=== PATIENT | female | born 1955 | race Hispanic/Latino ===

== ENCOUNTER 2016-05-17 15:57 | Emergency (ER) | payer MEDICARE, MEDICAID ==
[~2016-05-17] VITALS: Ht 154.9 cm; Wt 120.0 kg
[~2016-05-17 15:57] MED LIST: ACET-2561 PO; ALBU2.5V4 IH; ALBU8.5H2 INHALATION; BECL8.7A6 IH; CHOL500050 PO; DIAZ5TAB PO; ERYT1OIN7 BOTH_EYES; GABA-502 PO; LEVO100T97 PO; METF850T2 PO; NITR0.4T SL; OMEP40CA3 PO; ONDA8TAB10 PO; OXYC15TA79 PO; PREG150C PO; ROPI0.5T2 PO; shower chair
[2016-05-17 16:15] VITALS: BP 125/82; PULSE 66; RESP 16; O2SAT 98
--- NOTE | 2016-05-17 19:14 | ED.REPORT ---
HPI-Abd Pain F 40 and Over Date of Service May 17, 2016 ED Provider: Sue Ramirez MD Pt is a 60 y.o. female with an extensive medical hx including chemotherapy secondary to Stage III ovarian cancer, kidney stones, and DM who presents to the ED from c/o right flank pain radiating to her RLQ. Pt states she was seen at and with a UTI, however they were concerned that she may also have a kidney infection. Pt reports associated dysuria and fever (subjective). Pt had chemotherapy on Thursday. Nursing Notes Stated Complaint: RIGHT SIDE PAIN Chief Complaint: Back Pain or Injury Nursing Notes Reviewed: Yes Allergies: Coded Allergies: naproxen (Verified Allergy, Severe, RHABDOMYOLYSIS - RASH,SWELL, 05/29/15) TAPE (Verified Allergy, Intermediate, rash/burn with plastic adhesive tape , 05/29/15) Use paper tape Scheduled Albuterol HFA (Proair HFA) 8.5 Gm Hfa.aer.ad 2 PUFFS INHALATION Q4H Beclomethasone Dipropionate (Qvar) 8.7 Gm Aer.w.adap 8.7 GM IH BID Diazepam (Valium) 5 Mg Tablet 5 MG PO TID Erythromycin Ophth Oint (Erythromycin Ophth Oint) 3.5 Gm Oint...g. 1 APPLIC BOTH _EYES TID Gabapentin (Gabapentin) 300 Mg Capsule 300 MG PO TID Levothyroxine (Synthroid) 100 Mcg Tablet 100 MCG PO DAILY Metformin (Metformin) 850 Mg Tablet 850 MG PO AM Omeprazole (Prilosec) 40 Mg Capsule.dr 40 MG PO BID Ondansetron ODT (Ondansetron ODT) 8 Mg Tab.rapdis 4-8 MG PO QID Pregabalin (Lyrica) 150 Mg Capsule 150 MG PO BID Ropinirole (Ropinirole) 0.5 Mg Tablet 0.5-1 MG PO HS Scheduled PRN Acetaminophen (Extra Strength Non-Aspirin) 500 Mg Tablet 500 MG PO Q6H PRN PRN PRN Albuterol Neb Soln (Albuterol Neb Soln) 2.5 Mg/3 Ml Vial.neb 2.5 MG IH Q4 PRN PRN For Shortness of Breath Cholecalciferol (Vitamin D3) (Vitamin D3) 50,000 Unit Capsule 50,000 UNIT PO WKLY PRN PRN DEFICIENCY Nitroglycerin SL (Nitrostat) 0.4 Mg Tab.subl 0.4 MG SL Q5MIN PRN PRN CHEST PAIN oxyCODONE (oxyCODONE) 15 Mg Tablet 15 MG PO Q4H PRN PRN For Pain Miscellaneous Medications ([shower chair]) 1 General Time Seen by MD: 19:12 Chief Complaint Flank pain right Hx Obtained From: Patient Arrived By: Walk-in Sudden in Onset?: Yes Onset Occurred: 5 - 8 hours ago Symptom Duration: Since onset Location: : Flank right Quality: Painful Radiation: : RLQ Severity: Current: Moderate Past Medical History Past Medical History Pneumonia Ulcer Kidney Stones Herniated discs Dermatomyositis Stage III Ovarian cancer on chemotherapy GERD Diabetes mellitus DVT requiring IVC filter placement status post removal of IVC filter DJD OA Depression Asthma Reports: GI bleed, Urinary tract infection Past Surgical History Cholecystectomy Partial hysterectomy Bilateral salpingo-oophorectomy and omentectomy secondary to left ovarian tumor Left port placement Muscle biopsy IVC filter placement and removal section 3 Reports: , Cholecystectomy Smoking History Former Smoker Social History Alcohol Use: Denies alcohol use Drug Use: Denies drug use Other Social History: Good social support, Local resident Ambulatory Status Independent Review of Systems Constitutional: Reports: Fever (Subjective) GI: Reports: Abdominal pain Female: Reports: Dysuria, Flank pain Complete sys rev & neg: except as marked. Physical Exam Vital Signs Vital Signs (First) Date Time Temp Pulse Resp B/P Pulse Ox O2 Delivery O2 Flow Rate FiO2 05/17/16 16:15 36.5 66 16 125/82 98 Room Air Initial VS: Reviewed Head / Eyes: Atraumatic, Normocephalic Extremities: Vascular intact, Neuro intact Neurologic: Alert, Oriented, Nonfocal Psychiatric: Mood/affect normal, Behavior normal, Normal thought content General/Constitutional: Awake, Alert Appearance / Presentation: Positive: Obese, morbidly Respiratory / Chest: Atraumatic, Breath sounds NL, Breath sounds = bilat, No respiratory distress Cardiovascular: Regular rhythm, Heart sounds NL Heart Rate / Rhythm: Positive: Tachycardia Tenderness/Guarding/Rebound: Positive: Tender RLQ..., Tender flank R Back: Atraumatic, Inspection NL Right CVA tenderness Interpretation & Diagnostics Lab Results Interpretation Result Diagram: 05/17/16193905/17/161939 Test 05/17/16 19:40 05/17/16 20:00 White Blood Count 5.6th/mm3 (3.8-10.1) Red Blood Count 3.94mil/mm3 (3.90-5.20) Hemoglobin 11.3g/dL (12.0-15.6) Hematocrit 34.2% (35.0-46.0) Mean Corpuscular Volume 86.8fL (81-100) Mean Corpuscular Hemoglobin 28.7pg (27.0-35.0) Mean Corpuscular Hemoglobin Concent 33.0% (32.0-37.0) Red Cell Distribution Width 15.5% (12.3-15.4) Platelet Count 207bil/L (150-400) Neutrophils (%) (Auto) 57.4% (40-74) Lymphocytes (%) (Auto) 30.6% (14-46) Monocytes (%) (Auto) 10.3% (4-12) Eosinophils (%) (Auto) 1.3% (0-5) Basophils (%) (Auto) 0.2% (0-3) Sodium Level 137mEq/L (134-144) Potassium Level 4.2mEq/L (3.5-5.2) Chloride Level 99mEq/L (97-108) Carbon Dioxide Level 22mmol/L (18-29) Blood Urea Nitrogen 21mg/dL (8-27) Creatinine 0.76mg/dL (0.57-1.00) Estimat Glomerular Filtration Rate 111mL/min (>59) Glucose Level 120mg/dL (60-99) Calcium Level 9.3mg/dL (8.5-10.1) Total Bilirubin 0.2mg/dL (0.0-1.2) Aspartate Amino Transf (AST/SGOT) 24U/L (0-50) Alanine Aminotransferase (ALT/SGPT) 21U/L (0-32) Alkaline Phosphatase 76U/L (25-165) Total Protein 7.3g/dL (6.4-8.4) Albumin 3.8g/dL (3.4-5.0) Lipase 35U/L (13-60) Hold Juárez Top Tube Received (Received) Urine Color Straw (YELLOW) Urine Appearance Clear (CLEAR,HAZY) Urine pH 5.5 (5.0-8.0) Urine Specific [place] 1.025 (1.003-1.035) Urine Protein Negativemg/dL (NEG,TRACE) Urine Glucose (UA) Negativemg/dL (NEGATIVE) Urine Ketones Negativemg/dL (NEGATIVE) Urine Occult Blood Trace (NEGATIVE) Urine Nitrite Negative (NEGATIVE) Urine Bilirubin Negative (NEGATIVE) Urine Urobilinogen Normalmg/dL (NORMAL) Urine Leukocyte Esterase Negative (NEGATIVE) Urine RBC 0-2/hpf (0-2) Urine WBC 0-5/hpf (0-5) Urine Epithelial Cells Few/hpf (NONE-MOD) Urine Crystals None seen (NONE SEEN) Urine Bacteria Few/hpf (NONE-FEW) Urine Hyaline Casts None/lpf (NONE) Urine Granular Casts None seen (NONE SEEN) Urine Waxy Casts None seen (NONE SEEN) Urine Red Blood Cell Casts None seen (NONE SEEN) Urine White Blood Cell Casts None seen (NONE SEEN) Urine Mucus None seen (None Seen) Urine Trichomonas None seen (NONE SEEN) Urine Yeast None (NONE SEEN) Urinalysis Comment None Urine Culture Reflexed Not indicated CT Abd / Pelvis Interpretation IMPRESSION: 1. Kidneys ureters and bladder are normal. 2. There are 2 supraumbilical small fatty ventral hernias. 3. There is a moderate to large ventral hernia infraumbilical he nonobstructing small bowel loops within it. 4. Previous cholecystectomy. Dictated by: Dev Esquivel M.D. on 05/17/2016 at 20:08 Approved by: Dev Esquivel M.D. on 05/17/2016 at 20:25 Re-Eval/Medical Decision Med Decision/Clinical Course 60-year-old female with past medical history of ovarian cancer on chemotherapy and radiation here with right flank pain and dysuria. Differential diagnosis includes but is not limited to urinary tract infection versus pyelonephritis versus renal colic versus renal stone. Patient's CBC, CMP, urinalysis are all normal. She is status post cholecystectomy, so I do not feel she has any problems with her gallbladder. She is feeling much better in the emergency department and amenable to discharge at this time with follow-up with her oncologist. She has been given very strict return precautions. Source of Hx: Old records Re-Evaluation/Progress : Time of Eval: 21:44 Re-Evaluation/Progress Note: Pt rechecked. Discussed plan for discharge, pt understands and agrees with plan. Counseled Regarding: Diagnosis, Lab results, Need for follow-up, When/why to return to ED Discharge & Departure Primary Impression: Flank pain Disposition: Home Discharge Condition All VS Reviewed: Yes Additional Instructions: Thank you for entrusting us with your car today. You lab results and abdominal CT were reassuring and I do not see any signs of infection or a serious mechanism for your pain. I recommend you follow-up with your oncologist and primary care provider this week to discuss your pain. Call Thursday to schedule an appointment. Seek care for increasing pain, fever, vomiting, or any new or worsening symptoms. Referrals: Felicia Interiano MD (PCP) Nils Attestation Portions of this note were transcribed by Nicolasa Edward. I, Dr. Ramirez personally performed the history, physical exam and medical decision-making; I reviewed and confirmed the accuracy of the information in the transcribed note. Signed by : Nils Erickson, 05/17/16 and [id number]. copies to: Felicia Interiano MD, Rebecca A MD May 17, 2016 19:14 NICOLASA EDWARD May 17, 2016 19:25
[2016-05-17] MEDS ORDERED: 0.9% Sodium Chloride 1,000 ML IV ONE (19:35)
[2016-05-17 19:56] LABS: BASOPHILS % (AUTO) 0.2 % (0-3); EOSINOPHILS % (AUTO) 1.3 % (0-5); MONOCYTES % (AUTO) 10.3 % (4-12); Mean Corpuscular Hemoglobin 28.7 pg (27.0-35.0); Mean Corpuscular Volume 86.8 fL (81-100); NEUTROPHILS % (AUTO) 57.4 % (40-74); Platelet Count 207 bil/L (150-400)
--- NOTE | 2016-05-17 20:26 | DRSVH ---
PROCEDURE: CT KUB ([id number]) INDICATIONS: right flank pain TECHNIQUE: Noncontrast 5 mm thick sections acquired from the diaphragms to the symphysis. 5 mm thick coronal an d sagittal reformats were then performed. For radiation dose reduction, the following was used: aut omated exposure control, adjustment of mA and/or kV according to patient size. COMPARISON: [facility], CT, KUB - CT ([facility] 04/06/2011, 15:54. FINDINGS: Image quality: Excellent. Lung bases: Lung bases are clear. Heart size is normal. Urinary system: Both kidneys are normal in size. No kidney stones. No hydronephrosis or perinephri c fat stranding. Both ureters appear non-dilated throughout their expected courses. Bladder wall th ickness is normal; no calcified bladder stones. Other solid organs: Liver and spleen are normal in size. Gallbladder has been removed.. Pancreas i s normal in contours. No adrenal nodules. Peritoneum and bowel: Unenhanced bowel loops demonstrate normal wall thickness and caliber. No free fluid or air. The appendix is normal. Nodes and vessels: No retroperitoneal or mesenteric adenopathy by size criteria. Aorta and inferior vena cava are normal in caliber. Abdominal wall: There are 2 small fatty ventral hernias in the supraumbilical midline. There is a john tral hernia infraumbilical he into the panniculus in this contains nonobstructed small bowel loops. T he opening measures 4.6 cm. The hernia is 10.6 cm in transverse dimension 7 cm in length. Pelvis: No free pelvic fluid. No inguinal hernias or adenopathy. Uterus has been removed. Bones: No suspicious bony lesions. No vertebral body compression fractures. IMPRESSION: 1. Kidneys ureters and bladder are normal. 2. There are 2 supraumbilical small fatty ventral hernias. 3. There is a moderate to large ventral hernia infraumbilical he nonobstructing small bowel loops wit hin it. 4. Previous cholecystectomy. Dictated by: Dev Esquivel M.D. on 05/17/2016 at 20:08 Approved by: Dev Esquivel M.D. on 05/17/2016 at 20:25
[2016-05-17 20:30] LABS: APPEARANCE,URINE CLEAR (CLEAR,HAZY); COLOR,URINE STRAW (YELLOW); OCCULT BLOOD,URINE TRACE (NEGATIVE); PH,URINE 5.5 (5.0-8.0); UROBILINOGEN,URINE NORMAL (NORMAL)
[2016-05-17] MEDS ORDERED: HepLOK Flush 100 unit/mL 5 mL Inj ONE (22:02)
[2016-05-17 22:13] VITALS: BP 105/68; PULSE 65; RESP 20; O2SAT 96
[2016-05-19] MEDS ORDERED: DIAZ5TAB3 PO (15:25)
[2016-05-19] MEDS ORDERED: GEMF600T3 PO (15:28)
== END 2016-05-17 22:14 | disposition home or self-care (01) ==
LOC: SED 15:57
DX: R10.31 Right lower quadrant pain (principal); R30.0 Dysuria; R50.9 Fever, unspecified; C56.9 Malignant neoplasm of unspecified ovary; J45.909 Unspecified asthma, uncomplicated; K21.9 Gastro-esophageal reflux disease without esophagitis; E11.9 Type 2 diabetes mellitus without complications; Z90.49 Acquired absence of other specified parts of digestive tract; Z79.84 Long term (current) use of oral hypoglycemic drugs; Z87.891 Personal history of nicotine dependence
CPT/HCPCS: 36415; 74176; 80053; 81000; 81002; 83690; 85025; 87040; 96360; 99285; G0463; J1642; J7030